=== PATIENT | female | born 1990 | race Caucasian/White ===

== ENCOUNTER → 2019-06-11 20:20 | Observation (INO) ==
[2019-06-11 16:14] LABS: Basophils % 0.1 %; Eosinophils # 0.1 K/mcL (0.0-0.6); Eosinophils % 0.6 %; Hematocrit 37.2 % (35.3-44.9); Hemoglobin 12.4 g/dL (11.5-15.4); Immature Granulocytes % 0.6 % (0-4); Lymphocytes # 2.2 K/mcL (0.6-4.6); Lymphocytes % 15.7 %; Mean Corpuscular HGB Conc 33.3 g/dL (31.6-35.5); Monocytes # 0.7 K/mcL (0.0-1.3); Neutrophils # 11.1 K/mcL (1.6-8.9); Platelet Count 218 K/mcL (140-400); Red Cell Distribution Width 12.7 % (11.5-14.5); White Blood Count 14.2 K/mcL (4.3-11.1)
[2019-06-11 16:23] LABS: Amphetamine Screen,Urine Negative ng/mL (Cutoff=1000); Barbiturate Screen,Urine Negative ng/mL (Cutoff=200); Benzodiazepines Screen,Urine Negative ng/mL (Cutoff=200); Cannabinoid Screen,Urine Negative ng/mL (Cutoff = 50); Cocaine Screen,Urine Negative ng/mL (Cutoff= 300); Opiate Screen,Urine Negative ng/mL (Cutoff=300); Phencyclidine Screen,Urine Negative ng/mL (Cutoff=25)
[2019-06-11 16:33] LABS: Alanine Aminotransferase 8 Units/L (7-52); Aspartate Amino Transferase 14 Units/L (13-39); BUN/Creatinine Ratio 16 (6-26); Blood Urea Nitrogen 8 mg/dL (6-20); Lactate Dehydrogenase 142 Units/L (140-271); Uric Acid 3.4 mg/dL (2.3-7.6); eGFR For African Americans > 60 (> 60); eGFR For Non-African Americans > 60 (> 60)
[2019-06-11 16:50] LABS: Creatinine,Urine 28 mg/dL; Protein/Creatinine Ratio,Urine 0.14 mg/mg (0.00-0.20)
--- NOTE | 2019-06-11 20:09 | Discharge Summary ---
Date of Encounter: 06/11/19 Time of Encounter: 20:25 - Discharge Diagnosis (1) 28 weeks gestation of Priority: Primary Status: Acute Comments: Admit to observation for complaint of elevated blood pressure. (2) Elevated blood pressure affecting in third trimester, antepartum Priority: Secondary Status: Acute Comments: Patient has a history of elevated blood pressure in previous pregnancies. Currently on 81mg ASA daily All BP's WNL while here Labs WNL - Discharge Medications Prescriptions: No Action Pnv95/Ferrous Fumarate/FA [ Vitamin Tablet] 1 each PO DAILY Aspirin [Lo-Dose Aspirin EC] 81 mg PO DAILY Home Medications: Aspirin [Lo-Dose Aspirin EC] 81 mg PO DAILY 06/11/19 [History] Pnv95/Ferrous Fumarate/FA [ Vitamin Tablet] 1 each PO DAILY 06/11/19 [History] Allergies/Adverse Reactions: Allergy/AdvReac Type Severity Reaction Status Date / Time No Known Allergies Allergy Verified 06/11/19 15:46 Data Procedures and tests throughout hospitalization: Laboratory Tests 06/11/19 06/11/19 06/11/19 15:58 15:58 15:58 WBC 14.2 H RBC 4.00 Hgb 12.4 Hct 37.2 MCV 93.0 MCH 31.0 MCHC 33.3 RDW 12.7 Plt Count 218 MPV 10.0 Immature Gran % 0.6 Seg Neutrophils % 78.0 Lymphocytes % 15.7 Monocytes % 5.0 Eosinophils % 0.6 Basophils % 0.1 Neutrophils # 11.1 H Lymphocytes # 2.2 Monocytes # 0.7 Eosinophils # 0.1 Basophils # 0.0 BUN 8 Creatinine 0.50 L Est GFR ( Amer) > 60 Est GFR (Non-Af Amer) > 60 BUN/Creatinine Ratio 16 Uric Acid 3.4 AST 14 ALT 8 Lactate Dehydrogenase 142 Urine Creatinine 28 Protein/Creatinin Ratio 0.14 Urine Total Protein 4 Urine Opiates Screen Negative Ur Buprenorphine Scrn Negative Ur Barbiturates Screen Negative Ur Phencyclidine Scrn Negative Ur Amphetamines Screen Negative U Benzodiazepines Scrn Negative Urine Cocaine Screen Negative U Marijuana (THC) Screen Negative Ur Drug Screen Interp See Below Labs on day of discharge: Labs from last 24 hours 06/11/19 06/11/19 06/11/19 15:58 15:58 15:58 WBC 14.2 H RBC 4.00 Hgb 12.4 Hct 37.2 MCV 93.0 MCH 31.0 MCHC 33.3 RDW 12.7 Plt Count 218 MPV 10.0 Immature Gran % 0.6 Seg Neutrophils % 78.0 Lymphocytes % 15.7 Monocytes % 5.0 Eosinophils % 0.6 Basophils % 0.1 Neutrophils # 11.1 H Lymphocytes # 2.2 Monocytes # 0.7 Eosinophils # 0.1 Basophils # 0.0 BUN 8 Creatinine 0.50 L Est GFR ( Amer) > 60 Est GFR (Non-Af Amer) > 60 BUN/Creatinine Ratio 16 Uric Acid 3.4 AST 14 ALT 8 Lactate Dehydrogenase 142 Urine Creatinine 28 Protein/Creatinin Ratio 0.14 Urine Total Protein 4 Urine Opiates Screen Negative Ur Buprenorphine Scrn Negative Ur Barbiturates Screen Negative Ur Phencyclidine Scrn Negative Ur Amphetamines Screen Negative U Benzodiazepines Scrn Negative Urine Cocaine Screen Negative U Marijuana (THC) Screen Negative Ur Drug Screen Interp See Below Date of admission: 06/11/19 15:09 Primary care physician: Florencio Longo MD Discharging clinician: Veena Ladd Anticipated date of discharge: 06/11/19 - Patient Status Disposition: Home, Self-Care Condition: Good Functional capacity at discharge: independent ambulation Overall status at discharge: patient is progressing back to baseline - Discharge Instructions Follow Up With: Florencio Longo MD [Primary Care Provider] - Santo Joiner MD [Partnered Physician] - - Diet and Activity Activity: resume usual activities as tolerated Diet: regular diet Hospital Course [facility] Hospital course: Patient presented today with complaint of elevated blood pressure. She states she had Pre-E with her first and required medication after her second for BP related to "family issues" that were causing her stress. She states she has had some mildly elevated BP's during this but nothing that has required intervention. She has an appointment to see Dr. Joiner tomorrow and is encouraged to discuss this triage visit with him. She was notified of normal lab values and blood pressures. She reports positive movement and denies vaginal bleeding, contractions, and fluid leakage. Time Attestation: Total time spent providing and/or coordinating discharge services: Time Spent: Less than 30 minutes Exam - Constitutional General appearance IM: A&O X 3, no acute distress - Respiratory Respiratory exam: Present: CTAB. Absent: respiratory distress - Cardiovascular Cardiovascular exam IM: Present: RRR, +S1, +S2. Absent: irregular rhythm - GI/Abdominal GI/Abdominal exam IM: normal bowel sounds Incision: normal, dry, intact - Rectal Rectal exam: deferred - Extremities Exam Extremities exam IM: Present: full ROM, normal capillary refill, normal inspection. Absent: calf tenderness - Neurological Exam Neurological exam: alert, normal gait, oriented X3 - VTE Reasons for not Prescribing Prophylaxis: Treatment not Indicated - Low risk for VTE
[~2019-06-11 20:20] MED LIST: FLU Vac QV 19-20 (6Month+)/PF 0.5 ML SYRINGE IM ONE
== END | disposition home or self-care (01) ==
LOC: 1NENULAB
PROVIDERS: ADMIT Registered Nurse; ATTEND Registered Nurse

== ENCOUNTER 2019-08-21 21:54 | Inpatient (IN) ==
[2019-08-21 21:34] LABS: Basophils % 0.2 %; Eosinophils # 0.2 K/mcL (0.0-0.6); Eosinophils % 0.9 %; Hematocrit 41.3 % (35.3-44.9); Hemoglobin 14.3 g/dL (11.5-15.4); Immature Granulocytes % 0.6 % (0-4); Lymphocytes % 19.1 %; Mean Corpuscular HGB Conc 34.6 g/dL (31.6-35.5); Mean Corpuscular Hemoglobin 31.7 pg (28.0-33.3); Mean Corpuscular Volume 91.6 fL (83.0-100.0); Mean Platelet Volume 10.6 fL (9.4-12.4); Monocytes % 6.3 %; Neutrophils # 11.5 K/mcL (1.6-8.9); Platelet Count 236 K/mcL (140-400); Red Blood Count 4.51 M/mcL (3.82-4.97); Red Cell Distribution Width 12.8 % (11.5-14.5); Segmented Neutrophils % 72.9 %; White Blood Count 15.8 K/mcL (4.3-11.1)
[2019-08-21 21:41] LABS: Amphetamine Screen,Urine Negative ng/mL (Cutoff=1000); Barbiturate Screen,Urine Negative ng/mL (Cutoff=200); Benzodiazepines Screen,Urine Negative ng/mL (Cutoff=200); Cannabinoid Screen,Urine Negative ng/mL (Cutoff = 50); Cocaine Screen,Urine Negative ng/mL (Cutoff= 300); Opiate Screen,Urine Negative ng/mL (Cutoff=300); Phencyclidine Screen,Urine Negative ng/mL (Cutoff=25); Protein/Creatinine Ratio,Urine 0.45 mg/mg (0.00-0.20)
[2019-08-21 21:50] LABS: Alanine Aminotransferase 11 Units/L (7-52); Aspartate Amino Transferase 18 Units/L (13-39); BUN/Creatinine Ratio 20 (6-26); Blood Urea Nitrogen 10 mg/dL (6-20); Lactate Dehydrogenase 158 Units/L (140-271); Uric Acid 4.1 mg/dL (2.3-7.6); eGFR For African Americans > 60 (> 60); eGFR For Non-African Americans > 60 (> 60)
[~2019-08-21 21:54] MED LIST changes: +*HR* Labetalol 20 MG/4 ML SYRINGE IVP ONE; +*HR* Labetalol 20 MG/4 ML SYRINGE IVP PRN; +CeFAZolin Premix DUPLEX 2,000 MG/50 ML BAG IVPB ONE; -FLU Vac QV 19-20 (6Month+)/PF 0.5 ML SYRINGE IM ONE; +Famotidine 20 MG/2 ML VIAL IVP ONE; +Metoclopramide 10 MG/2 ML VIAL IVP ONE; +Metoclopramide 10 MG/2 ML VIAL IVP PRN; +Ringers Solution, Lactated 1,000 ML IVC ONE; +Ringers Solution, Lactated 1,000 ML ONE
[2019-08-21] MEDS ORDERED: MetroNIDAZOLE 500 MG/100 ML 500 MG/100 ML BAG IVPB ONE (21:55)
[2019-08-21] MEDS ORDERED: *HR* Oxytocin 10 UNIT/ML VIAL IM ONE ×2 (21:59→22:39)
[2019-08-21] MEDS ORDERED: *HR* FentaNYL (PF) 100 MCG/2 ML VIAL ONE (21:59)
[2019-08-21] MEDS ORDERED: *HR* Morphine Sulfate/PF 10 MG/10 ML AMPUL ONE (21:59)
[2019-08-21] MEDS ORDERED: Acetaminophen IV 1,000 MG/100 ML INFUS..BTL IVPB ONE (22:40)
[2019-08-21] MEDS ORDERED: *HR* HYDROmorphone (PF) 1 MG/ML SYRINGE IVP PRN (22:40)
[2019-08-21] MEDS ORDERED: Ondansetron 4 MG/2 ML VIAL IVP PRN (22:40)
[2019-08-22] MEDS ORDERED: Simethicone 80 MG TAB.CHEW PO PRN (01:49)
[2019-08-22] MEDS ORDERED: Oxytocin 20 units/ LR 1000 mL 20 UNIT/1,000 ML BAG IVC SCH (01:49)
[2019-08-22] MEDS ORDERED: *HR* OxyCODONE/APAP 5/325 TABLET PO PRN (01:49)
[2019-08-22] MEDS ORDERED: Ondansetron 4 MG/2 ML VIAL IVP PRN (01:49)
[2019-08-22] MEDS ORDERED: Metoclopramide 10 MG/2 ML VIAL IVP PRN (01:49)
[2019-08-22] MEDS ORDERED: Sennosides 8.6 MG TABLET PO PRN (01:49)
[2019-08-22] MEDS ORDERED: ceFAZolin 2,000 MG in Water for inj. (sterile) 10 ML IVP SCH (02:00)
[2019-08-22] MEDS: ceFAZolin 2,000 MG in 0.9 % Sodium Chloride 100 ML IVP SCH ×3 (02:46→18:00)
[2019-08-22] MEDS: Ibuprofen 600 MG TABLET PO PRN ×3 (03:38→20:38)
[2019-08-22 06:45] LABS: Basophils # 0.1 K/mcL (0.0-0.2); Basophils % 0.2 %; Hematocrit 36.3 % (35.3-44.9); Hemoglobin 12.8 g/dL (11.5-15.4); Immature Granulocytes % 0.6 % (0-4); Lymphocytes % 8.3 %; Mean Corpuscular HGB Conc 35.3 g/dL (31.6-35.5); Mean Corpuscular Hemoglobin 32.2 pg (28.0-33.3); Mean Corpuscular Volume 91.2 fL (83.0-100.0); Mean Platelet Volume 10.3 fL (9.4-12.4); Monocytes # 1.2 K/mcL (0.0-1.3); Monocytes % 4.8 %; Platelet Count 219 K/mcL (140-400); Red Blood Count 3.98 M/mcL (3.82-4.97); Red Cell Distribution Width 12.7 % (11.5-14.5); Segmented Neutrophils % 86.1 %
[2019-08-22 06:46] LABS: Neutrophils # 20.8 K/mcL (1.6-8.9); White Blood Count 24.1 K/mcL (4.3-11.1)
[2019-08-22 07:21] LABS: Alanine Aminotransferase 9 Units/L (7-52); Aspartate Amino Transferase 17 Units/L (13-39); BUN/Creatinine Ratio 14 (6-26); Blood Urea Nitrogen 6 mg/dL (6-20); Lactate Dehydrogenase 170 Units/L (140-271); Uric Acid 3.6 mg/dL (2.3-7.6); eGFR For African Americans > 60 (> 60); eGFR For Non-African Americans > 60 (> 60)
[2019-08-22] MEDS: Prenatal Vit/FA 1 EACH TABLET PO SCH (08:16)
[2019-08-22] MEDS: metroNIDAZOLE 500 MG TABLET PO SCH ×4 (08:17→20:38)
[2019-08-23] MEDS: Ibuprofen 600 MG TABLET PO PRN (06:32)
[2019-08-23 07:26] LABS: Alanine Aminotransferase 7 Units/L (7-52); Aspartate Amino Transferase 20 Units/L (13-39); BUN/Creatinine Ratio 14 (6-26); Blood Urea Nitrogen 7 mg/dL (6-20); Uric Acid 4.3 mg/dL (2.3-7.6); eGFR For African Americans > 60 (> 60); eGFR For Non-African Americans > 60 (> 60)
[2019-08-23 08:27] VITALS: BP 131/90
[2019-08-23] MEDS: metroNIDAZOLE 500 MG TABLET PO SCH (08:51)
[2019-08-23] MEDS: Prenatal Vit/FA 1 EACH TABLET PO SCH (08:51)
[2019-08-23 10:35] LABS: Lactate Dehydrogenase 181 Units/L (140-271)
== END 2019-08-23 10:37 | disposition home or self-care (01) | DRG 540 ==
LOC: 1NENULAB → 1NENUOBS 08-22 01:33
PROVIDERS: ADMIT Advanced Practice Midwife; ATTEND Advanced Practice Midwife